=== PATIENT | female | born 1975 | race African-American/Black ===

== ENCOUNTER 2018-08-13 05:20 | Inpatient (IN) | payer MEDICAID ==
[~2018-08-13] VITALS: Ht 170.2 cm; Wt 79.4 kg
[2018-08-13] MEDS ORDERED: BACITRACIN 15GM TUBE TOP ONE (06:35)
[2018-08-13] MEDS ORDERED: BUPIVACAINE/EPINEPH/PF 0.25%/0.0005 10ML ONE (06:35)
[2018-08-13] MEDS ORDERED: BACITRACIN 50,000 UNITS/VIAL ONE (06:36)
[2018-08-13] MEDS ORDERED: NORMAL SALINE 0.9% 10 ML SYR ONE (06:36)
[2018-08-13 06:49] LABS: UCG SCREEN NEGATIVE
[2018-08-13] MEDS ORDERED: MULT-875 PO (07:03)
[2018-08-13] MEDS ORDERED: DOXE100C4 PO (07:03)
[2018-08-13] MEDS ORDERED: LORA0.5T2 PO (07:03)
[2018-08-13] MEDS ORDERED: ARIP20TA9 PO (07:03)
[2018-08-13] MEDS ORDERED: PARO-41 PO (07:03)
[2018-08-13] MEDS ORDERED: ROCURONIUM BROMIDE 10MG/ML VIAL 5ML IV ONE (07:33)
[2018-08-13] MEDS ORDERED: MIDAZOLAM HCL 2 MG/2 ML VIAL ONE (07:33)
[2018-08-13] MEDS ORDERED: PROPOFOL 200MG/20ML VIAL IV ONE (07:33)
[2018-08-13] MEDS ORDERED: GLYCOPYRROLATE 0.2 MG/ML 2ML VIAL ONE (07:33)
[2018-08-13] MEDS ORDERED: NEOSTIGMINE METHYLSULFATE 1MG/ML 10 ML VIAL ONE (07:33)
[2018-08-13] MEDS ORDERED: FENTANYL CITRATE/PF 50MCG/ML 2ML VIAL ONE ×3 (07:33→08:06)
[2018-08-13] MEDS ORDERED: SODIUM CHLORIDE 0.9% 10ML VIAL ONE (07:34)
[2018-08-13] MEDS ORDERED: PHENYLEPHRINE HCL 10 MG/ML 1ML (IV VIAL) IV ONE (07:34)
[2018-08-13] MEDS ORDERED: EPHEDRINE SULFATE 50MG/ML VIAL ONE (07:34)
[2018-08-13] MEDS ORDERED: ONDANSETRON HCL 4MG/2ML INJ ONE (07:34)
[2018-08-13] MEDS ORDERED: DEXAMETHASONE 4MG/ML 1ML VIAL ONE (07:34)
[2018-08-13] MEDS ORDERED: METOCLOPRAMIDE HCL 10MG/2ML VIAL ONE (07:34)
[2018-08-13] MEDS ORDERED: CEFAZOLIN SODIUM 1000MG/VIAL ONE (07:34)
[2018-08-13] MEDS ORDERED: SUCCINYLCHOLINE CHLORIDE 200MG/10ML IV ONE (07:34)
[2018-08-13] MEDS ORDERED: LIDOCAINE HCL/PF 1% 10 MG/ML 5ML VIAL ONE (07:34)
[2018-08-13] MEDS ORDERED: SODIUM CHLORIDE 0.9% 1,000 ML IV NR (08:04)
[2018-08-13] MEDS ORDERED: HYDROMORPHONE HCL/PF 2MG/ML CPJ IV PRN (08:15)
[2018-08-13] MEDS ORDERED: MEPERIDINE HCL/PF 25MG/ML CPJ IV PRN ×2 (08:15)
[2018-08-13] MEDS ORDERED: ONDANSETRON HCL 4MG/2ML INJ IV PRN ×2 (08:15→09:00)
[2018-08-13] MEDS ORDERED: SKIN ADHESIVE 0.7 GM EA TOP ONE (08:22)
[2018-08-13] MEDS ORDERED: HYDROMORPHONE HCL/PF 2MG/ML (OR) ONE (08:35)
[2018-08-13] MEDS ORDERED: CALCIUM CHLORIDE 1GM/10ML SYR IV ONE (08:47)
[2018-08-13] MEDS: MORPHINE SULFATE 4 MG/ML CPJ (NOT FOR IM USE) IV PRN ×4 (10:37→11:03)
[2018-08-13 11:25] VITALS: BP 119/64
[2018-08-13] MEDS ORDERED: CEFAZOLIN 1000MG PREMIX 50 ML IV SCH (13:00)
[2018-08-13] MEDS: CEFAZOLIN 1000MG PREMIX 50 ML IV SCH ×2 (14:11→22:31)
[2018-08-13] MEDS: DEXT 5%/0.45% NACL KCL 20MEQ/L 1,000 ML IV SCH (14:11)
[2018-08-13] MEDS: HYDROCODONE/ACETAMINOPHEN 5/325MG TABLET PO PRN ×2 (18:08→22:32)
[2018-08-13 20:00] VITALS: BP 118/68
[2018-08-13] MEDS: ONDANSETRON HCL 4MG/2ML INJ IV PRN (22:34)
[2018-08-14] VITALS: BP 121/73
[2018-08-14] MEDS: DEXT 5%/0.45% NACL KCL 20MEQ/L 1,000 ML IV SCH (00:36)
[2018-08-14] MEDS: CEFAZOLIN 1000MG PREMIX 50 ML IV SCH (06:35)
[2018-08-14] MEDS: HYDROCODONE/ACETAMINOPHEN 5/325MG TABLET PO PRN (06:36)
[2018-08-14] MEDS: ONDANSETRON HCL 4MG/2ML INJ IV PRN (06:40)
[2018-08-14 08:00] VITALS: BP 109/61
[2018-08-14 10:13] VITALS: BP 109/61
== END 2018-08-14 11:36 | disposition home or self-care (01) | DRG 404 ==
LOC: OR 05:20 → 6EST 05:21
PROVIDERS: ADMIT Surgery; ATTEND Surgery
PROC: 0GTK0ZZ Resection of Thyroid Gland, Open Approach (ICD-10-PCS; principal; 2018-08-13 07:30)
DX: C73 Malignant neoplasm of thyroid gland (principal); E83.51 Hypocalcemia
CPT/HCPCS: 36415; 81025; 82310; 88309; 88331; A4216; J0171; J0330; J0690; J1100; J1170; J2250; J2270; J2370; J2405; J2704; J2710; J2765; J3010; J3490